=== PATIENT | female | born 1970 | race Caucasian/White ===

== ENCOUNTER 2019-08-03 | Emergency (ER) | payer MEDICARE ==
[~2019-08-03] MED LIST: ASPIRIN EC81 MG PO; BENAZEPRIL20 MG PO; BENZTROPINE0.5 MG PO; BIAXIN500 MG OR; CELEXA20 MG PO; CIPROFLOXACN500 MG PO; ERYTHROMYCIN250 M1 PO; FIORICET PO; FLONASE NASAL50 MCG; FLUOXETINE20 MG PO; GABAPENTIN300 MG PO; HYDROCHLOROT25 MG PO; HYDROCHLOROT50 MG PO; LATUDA20 MG PO; LISINOPRIL10 MG PO; LISINOPRIL20 MG PO; LORTAB 7.5-3251 TAB PO; LORTAB5 PO; METFORMIN500 MG PO; NAPROSYN500 MG PO; NORVASC5 M1 PO; OMEPRAZOLE20 M1 PO; PHENERGAN25 MG/TAB PO; PYRIDIUM200 MG PO; ROBITUSSIN AC10 ML PO; TAM75CAP OR; TESSALON PER100 MG PO; TOPAMAX50 M1 PO; VISTARIL25 MG PO; VYVANSE10 MG PO; ZITHROMAX500 MG PO; ZPAK PO; [UNRECOGNIZED DRUG - OTHER] PO
[2019-08-03 14:20] LABS: URINE BLOOD DIPSTICK LARGE (NEGATIVE); URINE GLUCOSE - DIPSTICK >=1000 mg/dL (NEGATIVE); URINE KETONE TRACE mg/dL (NEGATIVE); URINE LEUK ESTERASE NEGATIVE (NEGATIVE); URINE NITRITE - DIPSTICK NEGATIVE (Negative); URINE PH 5.5 (4.5-8.0); URINE PROTEIN - DIPSTICK TRACE mg/dL (NEG-TRACE); URINE UROBILINOGEN - DIPSTICK 0.2 E.U./dL (0.2)
[2019-08-03 14:21] LABS: URINE BILIRUBIN - DIPSTICK SMALL (NEGATIVE); URINE COLOR ORANGE
[2019-08-03 15:19] LABS: URINE RBC TNTC RBC/hpf (0-5); URINE SQUAMOUS EPITHELIAL CELL FEW EPI/hpf (0-FEW)
== END 2019-08-03 16:15 | disposition home or self-care (01) ==
DX: B37.3 Candidiasis of vulva and vagina (principal); E11.65 Type 2 diabetes mellitus with hyperglycemia; I10 Essential (primary) hypertension; Z79.84 Long term (current) use of oral hypoglycemic drugs

== ENCOUNTER 2019-09-03 13:37 | Emergency (ER) | payer MEDICARE ==
[2019-09-03] MEDS ORDERED: JARDIANCE10 MG PO (14:19)
[2019-09-03] MEDS ORDERED: HYDROXYZ HCL50 MG PO (14:20)
[2019-09-03] MEDS ORDERED: ALLERGY RELF10 M3 PO (14:22)
[2019-09-03 15:18] VITALS: BP 152/78
== END 2019-09-03 15:18 | disposition home or self-care (01) ==
LOC: ED 13:37
DX: Z03.818 Encounter for observation for suspected exposure to other biological agents ruled out (principal); E11.9 Type 2 diabetes mellitus without complications; I10 Essential (primary) hypertension; Z79.84 Long term (current) use of oral hypoglycemic drugs

== ENCOUNTER 2020-02-07 18:16 | Emergency (ER) | payer MEDICARE ==
[~2020-02-07] VITALS: Ht 170.2 cm; Wt 175.0 kg
[~2020-02-07 18:16] MED LIST changes: +ALLERGY RELF10 M3 PO; +HYDROXYZ HCL50 MG PO; +JARDIANCE10 MG PO
[2020-02-07 21:05] VITALS: BP 158/78
--- NOTE | 2020-02-10 09:30 | NUR ---
Notified patient of positive Covid results. Patient denies dyspnea or fever. Advised patient to quarantine until contacted by the [facility] with further instructions. Advised patient to return to the ED with any difficulty breathing or SOB. Patient verbalized understanding.
== END 2020-02-07 21:05 | disposition home or self-care (01) ==
LOC: ED 18:16
DX: U07.1 COVID-19 (principal); R19.7 Diarrhea, unspecified; E11.9 Type 2 diabetes mellitus without complications; I10 Essential (primary) hypertension; F41.9 Anxiety disorder, unspecified; F32.9 Major depressive disorder, single episode, unspecified; Z79.84 Long term (current) use of oral hypoglycemic drugs

== ENCOUNTER 2022-07-14 18:34 | Emergency (ER) | payer MEDICARE ==
[2022-07-14 18:53] VITALS: BP 150/95
[2022-07-14 19:00] VITALS: BP 115/81
[2022-07-14 19:30] VITALS: BP 134/79
[2022-07-14 19:30] LABS: BASO% 0.7 % (0-3); EOS% 1.3 % (0-8); HEMATOCRIT 48.6 % (37.0-47.0); IMMATURE GRANULOCYTES 0.2 % (0.0-5.0); LYMPH% 30.6 % (15-41); MEAN CELL VOLUME 83.2 fL CALC (80.0-100.0); MEAN CORPUSCULAR HGB 27.4 pG CALC (26.0-32.0); MEAN CORPUSCULAR HGB CONC 32.9 g/dL CAL (32.0-36.0); MONO% 7.7 % (2-13); NEUT# 3.66 thou/uL (2.00-7.15); NEUT% 59.5 % (42-76); RED BLOOD COUNT 5.84 mill/uL (4.20-5.60); RED CELL DISTRI WIDTH 11.6 % (11.5-15.5)
[2022-07-14 19:41] LABS: ALBUMIN 4.1 g/dL (3.2-5.0); ALKALINE PHOSPHATASE 108 u/l (38-126); ANION GAP 12 (6-22 (CALC)); BILIRUBIN, TOTAL 0.7 mg/dL (0.02-1.3); BUN 16 mg/dL (7-17); BUN/CREATININE RATIO 22 (12-20 (CALC)); CARBON DIOXIDE 28 mmol/l (22-30); CHLORIDE 100 mmol/l (95-108); CREATININE 0.7 mg/dL (0.5-1.0); GFR FOR AFR.AMER. > 60 ML/MIN (>=60 (CALC)); GFR OTHER RACES > 60 ML/MIN (>=60 (CALC)); POTASSIUM 4.3 mmol/l (3.5-5.1); SGOT/AST 32 u/l (14-36); SODIUM 135 mmol/l (137-146); TOTAL PROTEIN 6.7 g/dL (6.3-8.2)
[2022-07-14 20:00] VITALS: BP 138/74
[2022-07-14 20:30] VITALS: BP 121/79
[2022-07-14 21:00] VITALS: BP 121/79; BP 148/85
== END 2022-07-14 21:16 | disposition home or self-care (01) ==
LOC: ED 18:34
PROVIDERS: Family Medicine
DX: E11.65 Type 2 diabetes mellitus with hyperglycemia (principal); I10 Essential (primary) hypertension; F41.9 Anxiety disorder, unspecified; F32.A Depression, unspecified; T38.3X6A Underdosing of insulin and oral hypoglycemic [antidiabetic] drugs, initial encounter; Z91.128 Patient's intentional underdosing of medication regimen for other reason; Z79.84 Long term (current) use of oral hypoglycemic drugs; Z79.85 Long-term (current) use of injectable non-insulin antidiabetic drugs

== ENCOUNTER 2022-10-30 17:42 | Emergency (ER) | payer MEDICARE ==
[2022-10-30] VITALS (15 sets, daily range): BP systolic 115–145; BP diastolic 71–91
[~2022-10-30] VITALS: Ht 170.2 cm; Wt 163.0 kg
[2022-10-30 18:37] LABS: BASO% 0.9 % (0-3); EOS% 2.9 % (0-8); HEMOGLOBIN 14.3 g/dl (12.0-16.0); IMMATURE GRANULOCYTES 0.2 % (0.0-5.0); LYMPH% 32.6 % (15-41); MEAN CELL VOLUME 84.8 fL CALC (80.0-100.0); MEAN CORPUSCULAR HGB 27.6 pG CALC (26.0-32.0); MEAN CORPUSCULAR HGB CONC 32.5 g/dL CAL (32.0-36.0); MONO% 7.4 % (2-13); NEUT# 3.69 thou/uL (2.00-7.15); RED BLOOD COUNT 5.19 mill/uL (4.20-5.60); RED CELL DISTRI WIDTH 12.2 % (11.5-15.5)
[2022-10-30 19:02] LABS: ALBUMIN 4.1 g/dL (3.2-5.0); ALKALINE PHOSPHATASE 78 u/l (38-126); ANION GAP 10 (6-22 (CALC)); BILIRUBIN, TOTAL 0.8 mg/dL (0.02-1.3); BUN 13 mg/dL (7-17); BUN/CREATININE RATIO 17 (12-20 (CALC)); CARBON DIOXIDE 29 mmol/l (22-30); CHLORIDE 103 mmol/l (95-108); CREATININE 0.8 mg/dL (0.5-1.0); GFR FOR AFR.AMER. > 60 ML/MIN (>=60 (CALC)); GFR OTHER RACES > 60 ML/MIN (>=60 (CALC)); POTASSIUM 4.1 mmol/l (3.5-5.1); SGOT/AST 29 u/l (14-36); SODIUM 138 mmol/l (137-146); TOTAL PROTEIN 7.1 g/dL (6.3-8.2)
[2022-10-30] MEDS ORDERED: PROTONIX40 M2 PO (20:46)
== END 2022-10-30 21:18 | disposition home or self-care (01) ==
LOC: ED 17:42
PROVIDERS: Family Medicine
DX: R07.89 Other chest pain (principal); K21.9 Gastro-esophageal reflux disease without esophagitis; I10 Essential (primary) hypertension; E11.9 Type 2 diabetes mellitus without complications; F41.9 Anxiety disorder, unspecified; F32.A Depression, unspecified; Z79.84 Long term (current) use of oral hypoglycemic drugs

== ENCOUNTER 2023-01-31 15:42 | Emergency (ER) | payer MEDICARE ==
[~2023-01-31] VITALS: Ht 175.3 cm; Wt 170.1 kg
[2023-01-31] VITALS (7 sets, daily range): BP systolic 110–150; BP diastolic 69–85
[~2023-01-31 15:42] MED LIST changes: +KEFLEX500 MG PO; +PROTONIX40 M2 PO; +TRAMADOL HYDROC50 M1 PO
[2023-01-31] MEDS ORDERED: MEDDOSEPAK PO (19:08)
[2023-01-31] MEDS ORDERED: NAPROXEN500 MG PO (19:08)
[2023-01-31] MEDS ORDERED: METHOCARBAMOL500 MG PO (19:10)
[2023-02-03] MEDS ORDERED: HUMALOG100 UNIT SC ×2 (18:30→18:31)
[2023-02-03] MEDS ORDERED: TYLENOL500 MG PO (18:31)
[2023-02-03] MEDS ORDERED: OMEPRAZOLE20 MG PO (18:32)
[2023-02-04] MEDS ORDERED: VALACYCLOVIR HYD1 GM PO (12:35)
[2023-02-04] MEDS ORDERED: PREDNISONE10 MG PO (12:37)
[2023-02-04] MEDS ORDERED: MEDDOSEPAK PO (12:37)
[2023-02-06] MEDS ORDERED: ASPIRIN ADULT L81 M2 PO (10:58)
[2023-02-06] MEDS ORDERED: ATORVASTATIN CA20 MG PO (10:58)
[2023-02-06] MEDS ORDERED: PLAVIX75 MG PO (11:26)
== END 2023-01-31 19:17 | disposition home or self-care (01) ==
LOC: ED 15:42
DX: R07.81 Pleurodynia (principal); I10 Essential (primary) hypertension; E11.9 Type 2 diabetes mellitus without complications; F41.9 Anxiety disorder, unspecified; F32.A Depression, unspecified; Z79.84 Long term (current) use of oral hypoglycemic drugs